=== PATIENT | male | born 1985 | race Caucasian/White ===

== ENCOUNTER 2017-02-01 15:43 | Observation (INO) | payer BC ==
[2017-02-01] MEDS ORDERED: Sodium Chloride 0.9% 1,500 ML IV SCH (15:51)
[2017-02-01] MEDS ORDERED: HYDROmorphone 1 MG/ML Syringe ONE (15:58)
[2017-02-01] MEDS ORDERED: Ondansetron 4 MG/2 ML SDV ONE (15:58)
[2017-02-01] MEDS ORDERED: Ondansetron 4 MG/2 ML SDV IVPUSH ONE (15:59)
[2017-02-01] MEDS ORDERED: HYDROmorphone 2 MG/ML Syringe IVPUSH ONE (15:59)
[2017-02-01] MEDS ORDERED: Diphtheria,Pertussis(Acell),Tetanus Vaccine 0.5 ML Syringe ONE (16:08)
[2017-02-01 16:20] LABS: CHLORIDE,CL 108 mmol/L (98-110); SODIUM,NA 140 mmol/L (136-146)
--- NOTE | 2017-02-01 16:24 | EDM.PDOC ---
ED HPI GENERAL MEDICAL PROBLEM - General Chief Complaint: Burn Stated Complaint: ESQUIVEL ALL OVER BODY Time Seen by Provider: 02/01/17 15:46 - History of Present Illness INITIAL COMMENTS - FREE TEXT/NARRATIVE: HISTORY AND PHYSICAL: History of present illness: Patient 31-year-old white male presents status post burn via [place] when working on a compressor patient denies up-to-date tetanus denies other trauma or concern Review of systems: As per history of present illness and below otherwise all systems reviewed and negative. Past medical history: As per history of present illness and as reviewed below otherwise noncontributory. Surgical history: As per history of present illness and as reviewed below otherwise noncontributory. Social history: No reported history of drug or alcohol abuse. Family history: As per history of present illness and as reviewed below otherwise noncontributory. Physical exam: HEENT: Atraumatic, normocephalic, pupils reactive, negative for conjunctival pallor or scleral icterus, mucous membranes moist, throat clear, neck supple, nontender, trachea midline. Lungs: Clear to auscultation, breath sounds equal bilaterally, chest nontender. Heart: S1S2, regular, negative for clicks, rubs, or JVD. Abdomen: Soft, nondistended, nontender. Negative for masses or hepatosplenomegaly. Negative for costovertebral tenderness. Pelvis: Stable nontender. Genitourinary: Patient has partial-thickness burn involving his scrotum and shaft of his penis again without circumferential injury Rectal: Deferred. Extremities: Atraumatic, negative for cords or calf pain. Neurovascular unremarkable. Neuro: Awake, alert, oriented. Cranial nerves II through XII unremarkable. Cerebellum unremarkable. Motor and sensory unremarkable throughout. Exam nonfocal. Skin: Patient has partial-thickness esquivel involving his bilateral upper extremities left lower extremity genitalia whole-body surface areas proximally 12% there is no obvious circumferential areas Diagnostics: CBC CMP chest x-ray Therapeutics: All his wounds were cleansed and dressed with sterile wet to dry tetanus updated normal saline 1600 mL over 8 hours Impression: #1 partial-thickness burn approximately 12% total body surface area Definitive disposition and diagnosis as appropriate pending reevaluation and review of above. ED ROS GENERAL - Review of Systems Review Of Systems: ROS reveals no pertinent complaints other than HPI. ED EXAM, GENERAL - Physical Exam Exam: See Below (See dictation) Course - Vital Signs Text/Narrative:: General surgery consulted and present - Orders/Labs/Meds Orders: Active Orders 24 hr Category Date Time Status Chest 1V Frontal [CR] Stat Exams 02/01/17 15:59 Taken UA W/MICROSCOPIC [URIN] Stat Lab 02/01/17 15:58 Uncollected Labs: Laboratory Tests 02/01/17 02/01/17 Range/Units 15:45 15:45 WBC 12.97 H (4.0-11.0) K/uL RBC 4.87 (4.50-5.90) M/uL Hgb 14.8 (13.0-17.0) g/dL Hct 43.0 (38.0-50.0) % MCV 88.3 (80.0-98.0) fL MCH 30.4 (27.0-32.0) pg MCHC 34.4 (31.0-37.0) g/dL RDW Std Deviation 40.6 (28.0-62.0) fl RDW Coeff of Melia 13 (11.0-15.0) % Plt Count 415 H (150-400) K/uL MPV 9.70 (7.40-12.00) fL Neut % (Auto) 69.9 (48.0-80.0) % Lymph % (Auto) 21.5 (16.0-40.0) % [place] % (Auto) 7.2 (0.0-15.0) % Eos % (Auto) 1.2 (0.0-7.0) % Baso % (Auto) 0.2 (0.0-1.5) % Neut # (Auto) 9.1 H (1.4-5.7) K/uL Lymph # (Auto) 2.8 H (0.6-2.4) K/uL [place] # (Auto) 0.9 H (0.0-0.8) K/uL Eos # (Auto) 0.2 (0.0-0.7) K/uL Baso # (Auto) 0.0 (0.0-0.1) K/uL Nucleated RBC % 0.0 /100WBC Nucleated RBCs # 0 K/uL Sodium 140 (136-146) mmol/L Potassium 3.7 (3.5-5.1) mmol/L Chloride 108 (98-110) mmol/L Carbon Dioxide 21 (21-31) mmol/L BUN 18 (6.0-23.0) mg/dL Creatinine 1.0 (0.6-1.5) mg/dL Est Cr Clr Drug Dosing TNP Estimated GFR (MDRD) > 60.0 ml/min Glucose 129 H (60-110) mg/dL Calcium 9.9 (8.8-10.8) mg/dL Total Bilirubin 0.6 (0.1-1.5) mg/dL AST 18 (5-40) IU/L ALT 19 (8-54) IU/L Alkaline Phosphatase 94 (40-150) Total Protein 7.6 (6.0-8.0) g/dL Albumin 4.6 (3.5-5.0) g/dL Globulin 3.0 (2.0-3.5) g/dL Albumin/Globulin Ratio 1.5 (1.3-2.8) Meds: Medications Discontinued Medications Generic Name Dose Route Start Last Admin Trade Name Kurt PRN Reason Stop Dose Admin Diphtheria/Tetanus/Acell Pertussis Confirm 02/01/17 16:08 Adacel Administered 02/01/17 16:09 Dose 0.5 ml .ROUTE .STK-MED ONE Hydromorphone HCl 1 mg 02/01/17 15:59 Dilaudid IVPUSH 02/01/17 16:00 ONETIME ONE Hydromorphone HCl Confirm 02/01/17 15:58 Dilaudid Administered 02/01/17 15:59 Dose 1 mg .ROUTE .STK-MED ONE Ondansetron HCl 4 mg 02/01/17 15:59 Zofran IVPUSH 02/01/17 16:00 ONETIME ONE Ondansetron HCl Confirm 02/01/17 15:58 Zofran Administered 02/01/17 15:59 Dose 4 mg .ROUTE .STK-MED ONE Departure - Departure Time of Disposition: 16:29 Disposition: Refer to Observation Condition: Good Clinical Impression: Esquivel of multiple specified sites - Discharge Information Forms: ED Department Discharge - My Orders Last 24 Hours: My Active Orders 02/01/17 15:58 UA W/MICROSCOPIC [URIN] Stat 02/01/17 15:59 Chest 1V Frontal [CR] Stat - Assessment/Plan Last 24 Hours: My Active Orders 02/01/17 15:58 UA W/MICROSCOPIC [URIN] Stat 02/01/17 15:59 Chest 1V Frontal [CR] Stat
[2017-02-01] MEDS ORDERED: diphenhydrAMINE 25 MG Cap PO PRN (16:37)
[2017-02-01] MEDS ORDERED: Ondansetron 4 MG/2 ML SDV IVPUSH PRN (16:37)
[2017-02-01] MEDS ORDERED: HYDROmorphone 2 MG/ML Syringe IVPUSH PRN (16:37)
[2017-02-01] MEDS ORDERED: Acetaminophen/oxyCODONE 325-5 MG Tab PO PRN (16:37)
[2017-02-01] MEDS ORDERED: Lidocaine 5% Oint 35.44 GM Tube TOP ONE (16:42)
[2017-02-01] MEDS ORDERED: Sodium Chloride 0.9% 1,000 ML IV SCH ×2 (16:45→19:15)
--- NOTE | 2017-02-01 16:45 | PCM.HP ---
H&P History of Present Illness - General Date of Service: 02/01/17 Admit Problem/Dx: Admission Diagnosis/Problem Admission Diagnosis/Problem Burn Source of Information: Patient History Limitations: Reports: No Limitations - History of Present Illness Initial Comments - Free Text/Narative: Patient is a 31 year old male who presents to the ED with a steam burn. He was working on a water pump and a pipe was water locked. When he opened the pipe hot steam rushed out at him. He jumped into a water tank immediately after. He then drove on a [address] to where he could call for help. His ex picked him up to bring him to the ED. Between this he rubbed aloe on all his martinez which helped with the pain. He is otherwise healthy and offers no complaints. He has steam wounds to his bilateral upper extremities L>R, upper thighs L>R, a small amount along his belt line, and on the left side of his penis and scrotum. - Related Data Allergies/Adverse Reactions: Allergies Allergy/AdvReac Type Severity Reaction Status Date / Time No Known Allergies Allergy Verified 02/01/17 16:33 Home Medications: Home Meds . [No Known Home Meds] 02/01/17 [History] Past Medical History - Past Health History Medical/Surgical History: Denies Medical/Surgical History Social & Family History - Family History Family Medical History: Noncontributory (Father is currently undergoing cancer treatment but unsure what kind of cancer.) - Tobacco Use Smoking Status *Q: Never Smoker Tobacco Use Within Last Twelve Months: No - Alcohol Use Alcohol Use History: Yes Alcohol Use Frequency: Socially - Recreational Drug Use Recreational Drug Use: No - Living Situation & Occupation Living situation: Reports: Social History Comment: [employer] H&P Review of Systems - Review of Systems: Review Of Systems: ROS reveals no pertinent complaints other than HPI. Exam - Exam Exam: See Below - Vital Signs Vital Signs: Last Vital Signs Temp 36.9 C 02/01/17 16:39 Pulse 75 02/01/17 16:39 Resp 18 02/01/17 16:39 BP 121/64 02/01/17 16:39 Pulse Ox 99 02/01/17 16:39 - Exam General: Alert, Oriented, Moderate Distress HEENT: Conjunctiva Clear, EACs Clear, EOMI Neck: Supple, Trachea Midline Lungs: Normal Respiratory Effort Cardiovascular: Regular Rate Abdomen: Soft, Other (scant 1st degree burn along belt line ) (Male) Exam: Normal Inspection, Scrotum Tenderness (L), Other (0.5% 1st degree burn to scrotum ) Back Exam: Normal Inspection Extremities: Normal Inspection, Normal Pulses, Other (1.5% Second degree burn on left forearm. 1.5% first degree burn on right forearm. 2% second degree burn to left inner thigh. 1% first degree burn to right thigh. ) Skin: Other (3.5% total second degree burn. 3.5% total first degree burn. ) Neurological: Strength Equal Bilateral Neuro Extensive - Mental Status: Alert, Oriented x3, Normal Mood/Affect, Normal Cognition - Patient Data Lab Results Last 24 hrs: Laboratory Results - last 24 hr 02/01/17 02/01/17 Range/Units 15:45 15:45 WBC 12.97 H (4.0-11.0) K/uL RBC 4.87 (4.50-5.90) M/uL Hgb 14.8 (13.0-17.0) g/dL Hct 43.0 (38.0-50.0) % MCV 88.3 (80.0-98.0) fL MCH 30.4 (27.0-32.0) pg MCHC 34.4 (31.0-37.0) g/dL RDW Std Deviation 40.6 (28.0-62.0) fl RDW Coeff of Melia 13 (11.0-15.0) % Plt Count 415 H (150-400) K/uL MPV 9.70 (7.40-12.00) fL Neut % (Auto) 69.9 (48.0-80.0) % Lymph % (Auto) 21.5 (16.0-40.0) % [place] % (Auto) 7.2 (0.0-15.0) % Eos % (Auto) 1.2 (0.0-7.0) % Baso % (Auto) 0.2 (0.0-1.5) % Neut # (Auto) 9.1 H (1.4-5.7) K/uL Lymph # (Auto) 2.8 H (0.6-2.4) K/uL [place] # (Auto) 0.9 H (0.0-0.8) K/uL Eos # (Auto) 0.2 (0.0-0.7) K/uL Baso # (Auto) 0.0 (0.0-0.1) K/uL Nucleated RBC % 0.0 /100WBC Nucleated RBCs # 0 K/uL Sodium 140 (136-146) mmol/L Potassium 3.7 (3.5-5.1) mmol/L Chloride 108 (98-110) mmol/L Carbon Dioxide 21 (21-31) mmol/L BUN 18 (6.0-23.0) mg/dL Creatinine 1.0 (0.6-1.5) mg/dL Est Cr Clr Drug Dosing TNP Estimated GFR (MDRD) > 60.0 ml/min Glucose 129 H (60-110) mg/dL Calcium 9.9 (8.8-10.8) mg/dL Total Bilirubin 0.6 (0.1-1.5) mg/dL AST 18 (5-40) IU/L ALT 19 (8-54) IU/L Alkaline Phosphatase 94 (40-150) Total Protein 7.6 (6.0-8.0) g/dL Albumin 4.6 (3.5-5.0) g/dL Globulin 3.0 (2.0-3.5) g/dL Albumin/Globulin Ratio 1.5 (1.3-2.8) Result Diagrams: 02/01/17 15:45 02/01/17 15:45 *Q Meaningful Use (ADM) - VTE *Q VTE Criteria *Q: - Stroke *Q Stroke Criteria *Q: - AMI *Q AMI Criteria *Q: - Problem List (1) Martinez of multiple specified sites Status: Acute Current Visit: Yes Problem List Initiated/Reviewed/Updated: Yes Orders Last 24hrs: Active Orders 24 hr Category Date Time Status Patient Status [ADT] Routine ADT 02/01/17 16:37 Ordered May Shower [RC] ASDIRECTED Care 02/01/17 16:37 Ordered Oxygen Therapy [RC] PRN Care 02/01/17 16:37 Ordered RT Incentive Spirometry [RC] ASDIRECTED Care 02/01/17 16:37 Ordered Up ad Janett [RC] ASDIRECTED Care 02/01/17 16:37 Ordered Vital Signs [RC] PER UNIT ROUTINE Care 02/01/17 16:37 Ordered Wound Care [RC] DAILY Care 02/01/17 16:37 Ordered Chest 1V Frontal [CR] Stat Exams 02/01/17 15:59 Taken UA W/MICROSCOPIC [URIN] Stat Lab 02/01/17 15:58 Uncollected Acetaminophen/oxyCODONE [Percocet 325-5 MG] Med 02/01/17 16:37 Ordered 2 tab PO Q4H PRN Bacitracin [Bacitracin Oint] Med 02/01/17 16:45 Ordered 1 gm TOP DAILY Docusate Sodium [Colace] Med 02/01/17 21:00 Ordered 100 mg PO BID HYDROmorphone [Dilaudid] Med 02/01/17 16:37 Ordered 0.5 mg IVPUSH Q1H PRN Ondansetron [Zofran] Med 02/01/17 16:37 Ordered 4 mg IVPUSH Q6H PRN Sodium Chloride 0.9% @ 125 MLS/HR (1000ml) Med 02/01/17 16:45 Ordered Sodium Chloride 0.9% [Normal Saline] 1,000 ml IV ASDIRECTED diphenhydrAMINE [Benadryl] Med 02/01/17 16:37 Ordered 25 mg PO Q4H PRN Resuscitation Status Routine Resus Stat 02/01/17 16:37 Ordered Medication Orders Bacitracin (Bacitracin Oint) 1 gm TOP DAILY [facility]ISA Diphenhydramine HCl (Benadryl) 25 mg PO Q4H PRN PRN Reason: Itching Docusate Sodium (Colace) 100 mg PO BID LUISA Hydromorphone HCl (Dilaudid) 0.5 mg IVPUSH Q1H PRN PRN Reason: Pain (severe 7-10) Sodium Chloride (Normal Saline) 1,000 mls @ 125 mls/hr IV ASDIRECTED LUISA Ondansetron HCl (Zofran) 4 mg IVPUSH Q6H PRN PRN Reason: Nausea/Vomiting Oxycodone/Acetaminophen (Percocet 325-5 Mg) 2 tab PO Q4H PRN PRN Reason: Pain (moderate 4-6) Assessment/Plan Comment:: ED physician and I discussed case with [employer] conductor burn physician. Photos of the martinez were sent. The burn doctor suggested the followin) 1st degree wounds on thigh and genitalia: Aloe vs Vaseline and Lidocaine. Bacitracin or silvadine on adaptic or xeroform is fine. 2) 2nd degree martinez: Bacitracin or silvadene with adaptic Will dress all wounds in bacitracin, adaptic and kerlix other than the genital wound. I will mix lidocaine with bacitracin and not cover the penis with dressings. Will admit for pain control and IVF. Discharge if patient stable after first dressing changes and pain well controlled.
[2017-02-01] MEDS: Lidocaine 2% Jelly 30 ML Tube MUCMEM SCH (17:15)
[2017-02-01] MEDS: Bacitracin Oint 28.35 GM Tube TOP SCH (17:15)
[2017-02-01] MEDS: Sodium Chloride 0.9% 1,000 ML IV SCH (19:36)
[2017-02-01] MEDS: Docusate Sodium 100 MG Cap PO SCH (20:49)
[2017-02-02] MEDS: Sodium Chloride 0.9% 1,000 ML IV SCH (02:25)
[2017-02-02] MEDS: Docusate Sodium 100 MG Cap PO SCH (08:35)
[2017-02-02 08:54] VITALS: BP 120/65
[2017-02-02] MEDS: Lidocaine 2% Jelly 30 ML Tube MUCMEM SCH (09:46)
[2017-02-02] MEDS: Bacitracin Oint 28.35 GM Tube TOP SCH (09:47)
--- NOTE | 2017-02-02 10:15 | PCM.DCSUM1 ---
Discharge Summary - Hospital Course Free Text/Narrative:: Patient is a 31 year old male who presented with a steam burn to bilateral forearms, thighs and genitalia. He was working on pipe that was vapor locked. When he opened it, it sprayed hot steam and water at him. He had first degree martinez to his right forearm and right inner thigh and genitalia. He had second degree martinez (superficial partial thickness) to the left forearm and left inner thigh. TBSA was 3.5%. He was placed in bacitracin/adaptic/kerlix. His genitalia had lidocaine bacitracin mix applied. His pain was well controlled with minimal narcotics overnight. His UOP was adequate and he was given IVF resucitation. Dressings were changed this morning and his wounds are stable. He is doing well and will discharge home with daily dressing changes. - Discharge Data Discharge Date: 02/02/17 Discharge Disposition: Home, Self-Care 01 Condition: Good - Discharge Diagnosis/Problem(s) (1) Martinez of multiple specified sites Status: Acute - Patient Instructions Diet: Regular Diet as Tolerated, Drink 8-10+ Glasses/Day Activity: Rest and Relax Today Driving: Do Not Drive Driving, Other: For today or while on narcotices Showering/Bathing: May Shower Wound/Incision Care: Change Dressing Daily Notify Provider of: Fever, Increased Pain, Swelling and Redness, Drainage, Nausea and/or Vomiting Other/Special Instructions: Can follow up in Dr. Campbell clinic in 2 weeks - Discharge Plan Prescriptions/Med Rec: Bacitracin [Bacitracin Oint] 1 gm TOP DAILY #1 tube Home Medications: Home Meds Bacitracin [Bacitracin Oint] 1 gm TOP DAILY #1 tube 02/02/17 [Rx] Patient Handouts: Acetaminophen; Oxycodone tablets, Burn Care Referrals: Magda Hardy MD [Physician] - 02/17/17 8:15 am - General Info Date of Service: 02/02/17 Functional Status: Reports: pain controlled, tolerating diet, ambulating, urinating - Review of Systems General: Reports: No Symptoms Genitourinary: Reports: no symptoms Musculoskeletal: Reports: no symptoms Skin: Reports: other (Some discomfort to areas of deeper martinez, but controlled with meds) Neurological: Reports: No Symptoms Psychiatric: Reports: no symptoms - Patient Data Vitals - Most Recent: Last Vital Signs Temp 36.6 C 02/02/17 08:00 Pulse 68 02/02/17 08:00 Resp 18 02/02/17 08:00 BP 120/65 02/02/17 08:00 Pulse Ox 95 02/02/17 08:00 Weight - Most Recent: 66 kg I&O - Last 24 hours: Intake & Output 02/01/17 02/02/17 02/02/17 22:59 06:59 14:59 Intake Total 120 1200 800 Output Total 350 1250 500 Balance -230 -50 300 Lab Results - Last 24 hrs: Laboratory Results - last 24 hr 02/01/17 Range/Units 19:20 Urine Color YELLOW Urine Appearance CLEAR Urine pH 5.5 (5.0-8.0) Ur Specific [place] >= 1.030 (1.001-1.035) Urine Protein NEGATIVE (NEGATIVE) mg/dL Urine Glucose (UA) NEGATIVE (NEGATIVE) mg/dL Urine Ketones 15 H (NEGATIVE) mg/dL Urine Occult Blood NEGATIVE (NEGATIVE) Urine Nitrite NEGATIVE (NEGATIVE) Urine Bilirubin NEGATIVE (NEGATIVE) Urine Urobilinogen 0.2 (<2.0) EU/dL Ur Leukocyte Esterase NEGATIVE (NEGATIVE) Urine RBC 0-1 (0-2/HPF) Urine WBC 0-2 (0-5/HPF) Ur Epithelial Cells RARE (NONE-FEW) Urine Bacteria RARE (NEGATIVE) Med Orders - Current: Current Medications Discontinued Medications Bacitracin (Bacitracin Oint) 1 gm TOP DAILY [facility] Last Admin: 02/02/17 09:47 Dose: 1 applic Diphenhydramine HCl (Benadryl) 25 mg PO Q4H PRN PRN Reason: Itching Diphtheria/Tetanus/Acell Pertussis (Adacel) Confirm Administered Dose 0.5 ml .ROUTE .STK-MED ONE Stop: 02/01/17 16:09 Last Admin: 02/01/17 16:30 Dose: 0.5 ml Docusate Sodium (Colace) 100 mg PO BID [facility] Last Admin: 02/02/17 08:35 Dose: Not Given Hydromorphone HCl (Dilaudid) 1 mg IVPUSH ONETIME ONE Stop: 02/01/17 16:00 Last Admin: 02/01/17 16:02 Dose: 1 mg Hydromorphone HCl (Dilaudid) Confirm Administered Dose 1 mg .ROUTE .STK-MED ONE Stop: 02/01/17 15:59 Last Admin: 02/01/17 16:30 Dose: Not Given Hydromorphone HCl (Dilaudid) 0.5 mg IVPUSH Q1H PRN PRN Reason: Pain (severe 7-10) Sodium Chloride (Normal Saline) 1,000 mls @ 125 mls/hr IV ASDIRECTED [facility] Last Admin: 02/01/17 18:44 Dose: 125 mls/hr Sodium Chloride (Normal Saline) 1,500 mls @ 200 mls/hr IV ASDIRECTED LUISA Last Admin: 02/01/17 15:51 Dose: 200 mls/hr Sodium Chloride (Normal Saline) 1,000 mls @ 150 mls/hr IV ASDIRECTED LUISA Sodium Chloride (Normal Saline) 1,000 mls @ 150 mls/hr IV ASDIRECTED LUISA Last Admin: 02/02/17 02:25 Dose: 150 mls/hr Lidocaine HCl (Lidocaine 5%) 1 gm TOP ONETIME ONE Stop: 02/01/17 16:43 Last Admin: 02/01/17 17:34 Dose: Not Given Lidocaine HCl (Xylocaine 2% Jelly) 30 ml MUCMEM DAILY [facility] Last Admin: 02/02/17 09:46 Dose: 1 applic Ondansetron HCl (Zofran) 4 mg IVPUSH ONETIME ONE Stop: 02/01/17 16:00 Last Admin: 02/01/17 16:00 Dose: 4 mg Ondansetron HCl (Zofran) Confirm Administered Dose 4 mg .ROUTE .STK-MED ONE Stop: 02/01/17 15:59 Last Admin: 02/01/17 16:31 Dose: Not Given Ondansetron HCl (Zofran) 4 mg IVPUSH Q6H PRN PRN Reason: Nausea/Vomiting Oxycodone/Acetaminophen (Percocet 325-5 Mg) 2 tab PO Q4H PRN PRN Reason: Pain (moderate 4-6) - Exam General: Reports: alert, oriented Lungs: Reports: Normal respiratory effort Cardiovascular: Reports: Regular Rate Extremities: Reports: no edema, normal pulses Skin: Reports: other (Right forearm: 1st degree burn to forearm. Right inner thigh: scattered small 1st degree martinez. Left forearm: Small blisters and superficial partial thickness burn to ventral forearm (~1.5% TBSA). Left inner thigh: New areas of blistering over burned areas. Superficial partial thickness burn (2% TBSA)) Psy/Mental Status: Reports: alert, normal affect, normal mood *Q Meaningful Use (DIS) - VTE *Q VTE Criteria *Q: - Stroke *Q Stroke Criteria *Q: - AMI *Q AMI Criteria *Q:
--- NOTE | 2017-02-02 13:38 | CR ---
EXAM DATE: 02/01/17 PATIENT'S AGE: 31 Patient: ISMAEL MCKNIGHT Facility: [place], [place] Site . Site : 1985 Study: XRay Chest [id number] 4:19:34 PM Ordering Physician: Stas Suarez Final Report: INDICATION: [place] over the body. TECHNIQUE: AP supine portable chest at 16:13 p.m. FINDINGS: Clear lungs. Normal heart size and pulmonary vascularity. Normal included skeletal thorax. IMPRESSION: Negative portable chest. No evidence for inhalation injury. Dictated by Gio Monaco MD @ 02/01/2017 4:22:01 PM Dictated by: Gio Monaco MD @ 02/01/2017 16:22:08 (Electronic Signature) Report Signed by Proxy. [facility]upe
== END 2017-02-02 09:51 | disposition home or self-care (01) ==
LOC: MW.ED 15:43 → MW.MS 16:30
PROVIDERS: ADMIT Surgery; ATTEND Surgery
DX: T24.111A Burn of first degree of right thigh, initial encounter (principal); T22.111A Burn of first degree of right forearm, initial encounter; T21.16XA Burn of first degree of male genital region, initial encounter; T24.212A Burn of second degree of left thigh, initial encounter; T22.212A Burn of second degree of left forearm, initial encounter
CPT/HCPCS: 36415; 71010; 80053; 81001; 85025; 90471; 90715; 96361; 96374; 96375; 99285; A9270; J1170; J2405; J7040; 99283; G0378